=== PATIENT | female | born 1985 | race Caucasian/White ===

== ENCOUNTER 2021-11-21 01:09 | Emergency (ER) | payer BC ==
--- OUTSIDE RECORDS SUMMARY | 2021-11-21 01:12 | XMS REPORT | Continuity of Care Document ---
:1985 Author Organization [facility] t Address [address] [place] [id number] Care Team Providers Name Role Phone Tayler Primary Care Physician TONYA OLIVERA Attending Clinician Unavailable Karl Hayes Attending Clinician Evi Posada DO Attending Clinician DANIEL Attending Clinician Unavailable RAMIREZ Attending Clinician Unavailable MD RIKKI Attending Clinician Unavailable Iglesia Nichols Attending Clinician IGLESIA LAMB Attending Clinician Unavailable ABHILASH PUGH Attending Clinician Unavailable NEYMAR Admitting Clinician Unavailable MD NEYMAR Admitting Clinician Unavailable Payers Payer Name Policy Type Policy Number Effective Date Expiration Date S ource Problems Condition Condition Condition Status Onset Resolution Last Treating Co mments Source Name Details Category Date Date Treatment Clinician Date No known No known Disease Unive rs active active ity of problems problems [facility] Allergies, Adverse Reactions, Alerts Allergy Allergy Status Severity Reaction(s) Onset Inactive Treating Comm ents Source Name Type Date Date Clinician NSAIDS Drug Active Anaphylaxis 2019-11 Unive rs (NON-HAM Class 0-07 ity of ROIDAL 00:00: [place] ANTI-INF 00 Medical LAMMATOR Branch Y DRUG) Nsaids Propensi Active Anaphylaxis 2019-11 Uni vers (Non-Ham ty to 0-07 ity of roidal adverse 00:00: [place] Anti-Inf reaction 00 Medica l lammator s Branch y Drug) NO KNOWN Drug Active Univers ALLERGIE Class ity of [facility] Social History Social Habit Start Date Stop Date Quantity Comments Source Exposure to Not sure [facility] SARS-CoV-2 (event) Medica l [place] Sex Assigned At [birth year] [facility] 00:00:00 00:00:00 [facility] Smoking Status Start Date Stop Date Source Unknown if ever smoked [facility] Medications Ordered Filled Start Stop Current Ordering Indication Dosage Frequency Signature Comments Components Source Medication Medication Date Date Medication? Clinician (SIG) Name Name proMETHazin 2020- No 12.5mg 12.5 mg, Univers e 07-0530 Intramuscu ity of (PHENERGAN) 18:00: 17:00 lar, ONCE, [place] injection 00 :00 1 dose, Medical 12.5 mg [facility] 07/05/21 at 1300, MIGUELANGEL proMETHazin 2020- No 12.5mg 12.5 mg, Univers e 07-0530 Intramuscu ity of (PHENERGAN) 18:00: 17:00 lar, ONCE, [place] injection 00 :00 1 dose, Medical 12.5 mg [facility] 07/05/21 at 1300, MIGUELANGEL proMETHazin Yes [id number] 25mg Insert 1 Univers e 25 mg 8-30 Suppositor [place]y of supp[place] 00:[place] rectum Medical every 4 Branch (four) hours as needed for Nausea and Vomiting (N/V). proMETHazin Yes [id number] 25mg Insert 1 Univers e 25 mg 8-30 Suppositor [place] of supp[place] 00:[place] rectum Medical every 4 Branch (four) hours as needed for Nausea and Vomiting (N/V). acetaminoph 2019-11- No 1000mg 1,000 mg, Univers en 0-08 10-08 Oral, ity of (TYLENOL) 04:00: 02:56 ONCE[place] tablet [place] :00 dose, Wed Medical 1,000 mg 08/12/20 at [facility] h 2300, MIGUELANGEL famotidine 2019-11- No 20mg 20 mg, Univ ers (PEPCID 0-08 10-08 Slow IV ity of (PF)) 04:00: 02:56 Push, [place] injection 00 :00 ONCE, 1 Medical 20 mg dose, [facility] Branch 08/12/20 at 2300, MIGUELANGEL maalox:diph 2019-11 2020- No 15mL 15 mL, Uni vers enhydrAMINE 0-08 10-08 Oral ity of :lidocaine 04:00: 02:56 [place] 2 % viscous 00 :00 Swallow), Med ical 1:1:1 ONCE, 1 Branch (FIRST-MOUT dose, Wed HWASH BLM) 08/12/20 at oral 2300, suspension Routine 15 mL NaCl 0.9% 2019-11- No 1000mL at 999 Uni vers (NS) bolus 0-08 10-08 mL/hr, ity of infusion 02:30: 02:56 1,000 mL, Dustin as 1,000 mL 00 :00 IV Medical Infusion, Branch ONCE, 1 dose, [facility] 08/12/20 at 2130, STAT ondansetron 2019-11- No 4mg 4 mg, Slow Univers (ZOFRAN 0-08 10-08 IV Push, ity of (PF)) 02:30: 01:46 ONCE, 1 [place] injection 4 00 :00 dose, Wed Med ical mg 08/12/20 at Branch 2130, MIGUELANGEL famotidine 2019-11 Yes [id number] 40mg Take 1 U nivers (PEPCID) 40 0-07 tablet by ity of mg tablet 00:00: mouth [place] 00 daily. Medical Branch famotidine 2019-11 Yes [id number] 40mg Take 1 U nivers (PEPCID) 40 0-07 tablet by ity of mg tablet 00:00: mouth [place] 00 daily. Medical Branch proMETHazin 2019-11 Yes [id number] 25mg Take 1 Univers e 25 mg 0-07 tablet by ity of tablet 00:00: mouth [place] 00 every 6 Medical (six) Branch hours as needed for Nausea and Vomiting (N/V). famotidine 2019-11 Yes [id number] 40mg Take 1 U nivers (PEPCID) 40 0-07 tablet by ity of mg tablet 00:00: mouth [place] 00 daily. Medical Branch proMETHazin 2019-11- No [id number] 25mg Take 1 Univers e 25 mg 0-07 08-30 tablet by ity of tablet 00:00: 00:00 mouth [place] 00 :00 every 6 Medical (six) Branch hours as needed for Nausea and Vomiting (N/V). proMETHazin 2019-11- No [id number] 25mg Take 1 Univers e 25 mg 0-07 08-30 tablet by ity of tablet 00:00: 00:00 mouth [place] 00 :00 every 6 Medical (six) Branch hours as needed for Nausea and Vomiting (N/V). Vital Signs Vital Name Observation Time Observation Value Comments Source Systolic blood 2021-07-05 16:53:00 135 mm[Hg] Univer sity of [facility] Diastolic blood 2021-07-05 16:53:00 85 mm[Hg] [facility] Heart rate 2021-07-05 16:53:00 95 /min [facility] Body temperature 2021-07-05 16:53:00 36.17 [facility] Respiratory rate 2021-07-05 16:53:00 20 /min [facility] Oxygen saturation in 2021-07-05 16:53:00 97 /min University of Arterial blood by [facility] Pulse oximetry Branch Systolic blood 2020-08-13 03:00:00 136 mm[Hg] Univer sity [facility] Diastolic blood 2020-08-13 03:00:00 78 mm[facility]Hg] [facility] rate 2020-08-13 03:00:00 73 /min [facility] Respiratory rate 2020-08-13 03:00:00 20 /min [facility] Oxygen saturation in 2020-08-13 03:00:00 98 /min [facility] Arterial blood by [facility] Pulse oximetry Branch Body temperature 2020-08-13 01:13:00 37.17 [facility] Body height 2020-08-13 01:13:00 167.6 cm [facility] Body weight 2020-08-13 01:13:00 102.967 kg [facility] BMI 2020-08-13 01:13:00 36.64 kg/m2 [facility] Procedures Procedure Date / Time Performed Performing Clinician Sourc e POCT TEST 2020-08-13 01:48:00 Yunier Lamb [facility] LIPASE 2020-08-13 01:43:00 Yunier Lamb [facility] [place] [facility] [place] MAGNESIUM 2020-08-13 01:43:[address] [facility] COMP. METABOLIC PANEL 2020-08-13 01:43:00 Yunier Lamb [facility] ([id number]) [facility] CBC WITH DIFF 2020-08-13 01:43:00 Itz [facility] o [facility] [place] URINALYSIS 2020-08-13 01:43:[address] [facility] NOTICE OF PRIVACY 2020-08-13 01:07:20 Doctor Unassigned, No Univ [facility] PRACTICES Name [facility] CONSENT/REFUSAL FOR 2020-08-13 01:07:01 Doctor Unassigned, No Un [facility] DIAGNOSIS AND Name [facility] TREATMENT Encounters Start End Encounter Admission Attending Care Care Encounter Source Date/Time Date/Time Type Type Clinicians Facility Department ID 2021-11-19 Outpatient [facility] ZIGGY [id number] M emoria 11:28:43 [facility]-10[facility]18 2021-10-18 Outpatient [facility] ZIGGY [id number] Memoria 11:00:00 23:59:00 STEPHAN sharma [facility] 2021-07-05 2021-07-05 Emergency Edelmira Gomez [facility] [id number] Univers 11:58:00 13:46:00 Adry Posada [id number] 0 [facility] [id number] [facility] [id number] [place] [id number] Branch 2021-07-05 2021-07-05 Emergency X [facility] ERT [id number] Univers 11:17:00 11:17:00 ity of [facility] 2021-06-02 2021-06-02 [facility] [id number] [place] 00:00:00 00:00:00 HUNTER [address] 2021-05-28 2021-05-28 Outpatient DANIEL [facility] [id number] [place] 00:00:00 00:00:00 HUNTER [address] 2021-05-16 2021-05-18 Outpatient SON GUZMÁN [facility] [id number] [place] 00:00:00 00:00:[address] 2020-08-12 2020-08-12 Emergency Yunier Lamb [facility] [id number] Univers 20:16:00 22:20:00 Iglesia Reicnos 350.1.13.10 i ty [facility] [id number] [facility] [id number] [facility] 084 Branch 2020-08-12 2020-08-12 Emergency X Yunier LAMB [facility] ERT [id number] Univers 20:04:00 20:04:00 ity of [facility] Results Test Description Test Time Test Comments Results Result Comments Source SARS-CoV-2 (COVID-19) RNA [Presence] in Respiratory sp ecimen by 2021-05-17 12:43:32 THUY with probe detection Test Item Value Reference Range Interpretation Comme nts SARS-CoV-2 (COVID-19) RNA [Presence] in Respiratory Not detected No t-Detected specimen by THUY with probe detection (test code = 83985-0) Whether patient is employed in a healthcare setting (test code = 31476-9) Whether the patient has symptoms related to condition of interest (test code = 37724-6) Patient was hospitalized because of this condition (test code = 17437-7) Whether the patient was admitted to intensive care unit (ICU) for condition of interest (test code = 67161-9) Whether patient resides in a congregate care setting (test code = 92608-2) SARS-CoV-2 (COVID-19) RNA [Presence] in Respiratory specimen by THUY with probe [id number] 12:43:32 Test Item Value Reference Range Interpretation Comments SARS-CoV-2 (COVID-19) RNA Not detected Not-Detected [Presence] in Respiratory specimen by THUY with probe detection (test code = 47550-5) Whether patient is employed in a healthcare setting (test code = 59222-6) Whether the patient has symptoms related to condition of interest (test code = 41582-3) Patient was hospitalized because of this condition (test code = 32223-8) Whether the patient was admitted to intensive care unit (ICU) for condition of interest (test code = 55623-4) Whether patient resides in a congregate care setting (test code = 03023-8) [id number] 02:22:00 Test Item Value Reference Range Interpretation Comments MAGNESIUM (test code = 2607666575) 2.1 mg/dL 1.7-2.4 Lab Interpretation (test code = Normal 41376-7) [facility]. METABOLIC PANEL (18124)2020-08-13 02:21:00 Test Item Value Reference Range Interpretation Comments NA (test code = 135 mmol/L 135-145 7155881714) K (test code = 3.6 mmol/L 3.5-5 0372023562) CL (test code = 97 mmol/L 98-108 L 5299037594) CO2 TOTAL (test code = 31 mmol/L 23-31 3855464868) AGAP (test code = 2-16 2616560076) BUN (test code = 6 mg/dL 7-23 L 5011303894) GLUCOSE (test code = 94 mg/dL 70-110 8877221838) CREATININE (test code = 0.57 mg/dL 0.5-1.04 5833856732) TOTAL BILI (test code = 1.4 mg/dL 0.1-1.1 H 5171056906) CALCIUM (test code = 9.7 mg/dL 8.6-10.6 7944784732) T PROTEIN (test code = 7.1 g/dL 6.3-8.2 2896667427) ALBUMIN (test code = 4.1 g/dL 3.5-5 5046661999) ALK PHOS (test code = 112 U/L 34-122 2269788273) ALTv (test code = 257 U/L 5-35 H 1742-6) AST(SGOT) (test code = 62 U/L 13-40 H 5010666102) eGFR Calculation mL/min/1.73m2 (Non-) (test code = 2230989073) eGFR Calculation mL/min/1.73m2 () (test code = 5412991815) ANIKA (test code = ANIKA) Association of Glomerular Filtration Rate (GFR) and Staging of Kidney Disease* + --+ --+ ------+| GFR (mL/min/1.73 m2) ?| With Kidney Damage ?| ?Without Kidney Damage+ --------+ --------+ +| ?>90 ?| ?Stage one ?| ? Normal ?+ ---+ ---+ -------+| ?60-89 ?| ?Stage two ?| ? Decreased GFR ? + --+ --+ ------+| ?30-59 ?| ?Stage three ?| ? Stage three ? + --+ --+ ------+| ?15-29 ?| ?Stage four ? | ? Stage four ?+ ---+ ---+ -------+| ?<15 (or dialysis) ? ?| ?Stage five ? | ? Stage five ?+ ---+ ---+ -------+ *Each stage assumes the associated GFR level has been in effect for at least three months. ?Stages 1 to 5, with or without kidney disease, indicate chronic kidney disease. Notes: Determination of stages one and two (with eGFR >59mL/min/1.73 m2) requires estimation of kidney damage for at least three months as defined by structural or functional abnormalities of the kidney, manifested by either:Pathological abnormalities or Markers of kidney damage (including abnormalities in the composition of the blood or urine or abnormalities in imaging tests). Lab Interpretation Abnormal (test code = 44111-0) [facility] Test Item Value Reference Range Interpretation Comments LIPASE (test code = 0780108744) 53 U/L 0-220 Lab Interpretation (test code = Normal 98475-1) [facility] 02:04:00 Test Item Value Reference Range Interpretation Comments APPEARANCE (test code = Clear Clear 3443919045) COLOR (test code = Straw Yellow A 4287203678) PH (test code = 4.8-8.0 6006841603) SP GRAVITY (test code = 1.003-1.030 L 4082552023) GLU U QUAL (test code = Normal Normal 8375882286) BLOOD (test code = Negative Negative 7394588701) KETONES (test code = Negative Negative 1046783213) PROTEIN (test code = Negative Negative 2887-8) UROBILIN (test code = Normal Normal 6570024855) BILIRUBIN (test code = Negative Negative 2183653398) NITRITE (test code = Negative Negative 4161752318) LEUK EVA (test code = Negative Negative 5071340659) RBC/HPF (test code = <1 See_Comment [Autom ated message] 8157064819) The system [employer] generated this result transmitted ref erence range: 0 - 3 HP F. The reference range was not used to int erpret this result as normal/abnormal . WBC/HPF (test code = See_Comment [Autom ated message] 0065408819) The system [employer] generated this result transmitted ref erence range: 0 - 5 HP F. The reference range was not used to int erpret this result as normal/abnormal . BACTERIA (test code = Few Negative A 7313794841) SQ EPITH (test code = HPF 9483145286) Lab Interpretation (test Abnormal code = 90985-7) [facility] WITH [id number] 01:56:00 Test Item Value Reference Range Interpretation Comments WBC (test code = See_Comment [Automated 1490-2) message] The sy stem which generated this result transmitted reference range : 4.30 - 11.10 10*3/?L. The reference range was not used to interpret this result as normal/abnormal . RBC (test code = See_Comment [Automated 099-8) message] The sy stem which generated this result transmitted reference range : 3.93 - 5.25 10*6/?L. The reference range was not used to interpret this result as normal/abnormal . HGB (test code = 12.7 g/dL 11.6-15 718-7) HCT (test code = 38.2 % 35.7-45.2 4544-3) MCV (test code = 92.5 fL 80.6-95.5 787-2) MCH (test code = 30.8 pg 25.9-32.8 785-6) MCHC (test code = 33.2 g/dL 31.6-35.1 786-4) RDW-SD (test code = 44.0 fL 39-49.9 41298-8) RDW-CV (test code = 13.0 % 12-15.5 788-0) PLT (test code = See_Comment H [Automated 777-3) message] The sy stem which generated this result transmitted reference range : 166 - 358 10*3/ ?L. The reference r aydin was not used to interpret this result as normal/abnormal . MPV (test code = 9.6 fL 9.5-12.9 06515-8) NRBC/100 WBC (test See_Comment [Automat ed code = 5246106873) message] The system which generated this result transmitted reference range : 0.0 - 10.0 /100 WBCs. The refer ence range was not u sed to interpret th is result as normal/abnormal . NRBC x10^3 (test code <0.01 See_Comment [Auto mated = 4640233865) message] The s ystem which generated this result transmitted reference range : 10*3/?L. The reference range was not used to interpret this result as normal/abnormal . GRAN MAT (NEUT) % 78.5 % (test code = 770-8) IMM GRAN % (test code 0.30 % = 8713612373) LYMPH % (test code = 14.3 % 736-9) MONO % (test code = 5.6 % 5905-5) EOS % (test code = 0.6 % 713-8) BASO % (test code = 0.7 % 706-2) GRAN MAT x10^3(ANC) 7.42 10*3/uL 1.88-7.09 H (test code = 2749171723) IMM GRAN x10^3 (test 0.03 10*3/uL 0-0.06 code = 0339888436) LYMPH x10^3 (test code 1.35 10*3/uL 1.32-3.29 = 731-0) MONO x10^3 (test code 0.53 10*3/uL 0.33-0.92 = 742-7) EOS x10^3 (test code = 0.06 10*3/uL 0.03-0.39 711-2) BASO x10^3 (test code 0.07 10*3/uL 0.01-0.07 = 704-7) Lab Interpretation Abnormal (test code = 74932-5) [id number] 01:48:00 Test Item Value Reference Range Interpretation Comments POCT PREG (test code = 1605) negative On board controls acceptable with present C Line (test code = 3574) POCT PREG LOT # (test code = 3575) [id number] POCT PREG TEST DATE (test 07/06/2021 code = 3576) Lab Interpretation (test code = Normal 35310-1) [facility],60 [id number] 12:53:00 Test Item Value Reference Range Interpretation Comments CORTISOL BASELINE NETWORKED 4.3 mcg/dL (BEAKER) (test code = 2307) CORTISOL 30 MINUTE NETWORKED 14.8 mcg/dL (BEAKER) (test code = 2308) CORTISOL, 60 MINUTE (BEAKER) 16.8 ug/dL (test code = 1805) ACTH STIMULATION TEST INTERPRETATION GUIDELINES(Synonyms: Cortrosyn Test, Cosyntropin or Corticotropin Stimulation Test)Adenocorticotropic hormone (ACTH)is a tropic hormone, made in the pituitary gland, which travels trhough the bloodstream and stimulates the cortex of the adrenal glands to release cortisol. Cortisol is a primary hormone, which aids the body's metabolism of fats, carbohydrates, and protein as well as sodium and potassium regulation.ACTH Stimulation Test: Exogenous administrationof biologically active ACTH stimulates the secretion of cortisol from the adrenal gland. This test is used to evaluate adrenal function by measuring cortisol levels at baseline and at 30 and 60 minutesafter the administration of 250 micrograms of cosyntropin (Cortrosyn). Patients who have received exogenous corticosteroids immediately prior to performing the ACTH Stimulation Test will often have elevated baseline cortisol levels, which may lead to erroneous interpretation of test results. The notable exception is with dexamethasone.Normal Response: An increase in cortisol after stimulation by ACTHis normal. Post-stimulation cortisol concentration should be greater than 20 mcg/dL or the rate of rise from baseline cortisol should be greater than or equal to 9 mcg/dL.Patients with sepsis or septicshock: According to a study by Zeny et al (MATILDA 2000,283(8):1038-45), the ACTH Stimulation Test provides important prognostic information. This study defined 3 groups of patients with sepsis or septic shock: 1. Good Survival: Low basal cortisol (<or=34 mcg/dL) and high ACTH response (>9mcg/dL) 2. Intermediate Survival: Low basal cortisol (<34 mcg/dL) and low response to ACTH (&l t;or=9 mcg/dL) OR High basal cortisol (>34 mcg/dL) or high ACTH response (>9 mcg/dL) 3.Poor Survival: High basal cortisol (>34 mcg/dL) and low ACTH response (<or=9 mcg/dL).Treatment of patients with relative adrenal dysfunction may be indicated based on test results and the clinical condition of the patient. Additional information, including treatment recommendations, is available in critically ill patients, approved by the Pharmacy, Nutrition, and Therapeutics Committee on 10/15/2004 and available through the Pharmacy Policy and Procedure Section on The Source.CORTISOL,30 [id number] 12:53:00 Test Item Value Reference Range Interpretation Comments CORTISOL BASELINE NETWORKED 4.3 mcg/dL (BEAKER) (test code = 2307) CORTISOL, 30 MINUTE (BEAKER) (test 14.8 ug/dL code = 1804) ACTH STIMULATION TEST INTERPRETATION GUIDELINES(Synonyms: Cortrosyn Test, Cosyntropin or Corticotropin Stimulation Test)Adenocorticotropic hormone (ACTH)is a tropic hormone, made in the pituitary gland, which travels trhough the bloodstream and stimulates the cortex of the adrenal glands to release cortisol. Cortisol is a primary hormone, which aids the body's metabolism of fats, carbohydrates, and protein as well as sodium and potassium regulation.ACTH Stimulation Test: Exogenous administrationof biologically active ACTH stimulates the secretion of cortisol from the adrenal gland. This test is used to evaluate adrenal function by measuring cortisol levels at baseline and at 30 and 60 minutesafter the administration of 250 micrograms of cosyntropin (Cortrosyn). Patients who have received exogenous corticosteroids immediately prior to performing the ACTH Stimulation Test will often have elevated baseline cortisol levels, which may lead to erroneous interpretation of test results. The notable exception is with dexamethasone.Normal Response: An increase in cortisol after stimulation by ACTHis normal. Post-stimulation cortisol concentration should be greater than 20 mcg/dL or the rate of rise from baseline cortisol should be greater than or equal to 9 mcg/dL.Patients with sepsis or septicshock: According to a study by Zeny et al (MATILDA 2000,283(8):9053-09), the ACTH Stimulation Test provides important prognostic information. This study defined 3 groups of patients with sepsis or septic shock: 1. Good Survival: Low basal cortisol (<or=34 mcg/dL) and high ACTH response (>9mcg/dL) 2. Intermediate Survival: Low basal cortisol (<34 mcg/dL) and low response to ACTH (&l t;or=9 mcg/dL) OR High basal cortisol (>34 mcg/dL) or high ACTH response (>9 mcg/dL) 3.Poor Survival: High basal cortisol (>34 mcg/dL) and low ACTH response (<or=9 mcg/dL).Treatment of patients with relative adrenal dysfunction may be indicated based on test results and the clinical condition of the patient. Additional information, including treatment recommendations, is available in critically ill patients, approved by the Pharmacy, Nutrition, and Therapeutics Committee on 10/15/2004 and available through the Pharmacy Policy and Procedure Section on The Source.CORTISOL,[id number] 12:47:00 Test Item Value Reference Range Interpretation Comments CORTISOL, BASELINE (BEAKER) (test 4.3 ug/dL code = 1803) ACTH STIMULATION TEST INTERPRETATION GUIDELINES(Synonyms: Cortrosyn Test, Cosyntropin or Corticotropin Stimulation Test)Adenocorticotropic hormone (ACTH)is a tropic hormone, made in the pituitary gland, which travels trhough the bloodstream and stimulates the cortex of the adrenal glands to release cortisol. Cortisol is a primary hormone, which aids the body's metabolism of fats, carbohydrates, and protein as well as sodium and potassium regulation.ACTH Stimulation Test: Exogenous administrationof biologically active ACTH stimulates the secretion of cortisol from the adrenal gland. This test is used to evaluate adrenal function by measuring cortisol levels at baseline and at 30 and 60 minutesafter the administration of 250 micrograms of cosyntropin (Cortrosyn). Patients who have received exogenous corticosteroids immediately prior to performing the ACTH Stimulation Test will often have elevated baseline cortisol levels, which may lead to erroneous interpretation of test results. The notable exception is with dexamethasone.Normal Response: An increase in cortisol after stimulation by ACTHis normal. Post-stimulation cortisol concentration should be greater than 20 mcg/dL or the rate of rise from baseline cortisol should be greater than or equal to 9 mcg/dL.Patients with sepsis or septicshock: According to a study by eZny et al (MATILDA 2000,283(8):1038-45), the ACTH Stimulation Test provides important prognostic information. This study defined 3 groups of patients with sepsis or septic shock: 1. Good Survival: Low basal cortisol (<or=34 mcg/dL) and high ACTH response (>9mcg/dL) 2. Intermediate Survival: Low basal cortisol (<34 mcg/dL) and low response to ACTH (&l t;or=9 mcg/dL) OR High basal cortisol (>34 mcg/dL) or high ACTH response (>9 mcg/dL) 3.Poor Survival: High basal cortisol (>34 mcg/dL) and low ACTH response (<or=9 mcg/dL).Treatment of patients with relative adrenal dysfunction may be indicated based on test results and the clinical condition of the patient. Additional information, including treatment recommendations, is available in critically ill patients, approved by the Pharmacy, Nutrition, and Therapeutics Committee on 10/15/2004 and available through the Pharmacy Policy and Procedure Section on [employer].CORTISOL,60 [id number] 15:21:00 Test Item Value Reference Range Interpretation Comments CORTISOL BASELINE NETWORKED 5.1 mcg/dL (BEAKER) (test code = 2307) CORTISOL 30 MINUTE NETWORKED 15.1 mcg/dL (BEAKER) (test code = 2308) CORTISOL, 60 MINUTE (BEAKER) 17.4 ug/dL (test code = 1805) ACTH STIMULATION TEST INTERPRETATION GUIDELINES(Synonyms: Cortrosyn Test, Cosyntropin or Corticotropin Stimulation Test)Adenocorticotropic hormone (ACTH)is a tropic hormone, made in the pituitary gland, which travels trhough the bloodstream and stimulates the cortex of the adrenal glands to release cortisol. Cortisol is a primary hormone, which aids the body's metabolism of fats, carbohydrates, and protein as well as sodium and potassium regulation.ACTH Stimulation Test: Exogenous administrationof biologically active ACTH stimulates the secretion of cortisol from the adrenal gland. This test is used to evaluate adrenal function by measuring cortisol levels at baseline and at 30 and 60 minutesafter the administration of 250 micrograms of cosyntropin (Cortrosyn). Patients who have received exogenous corticosteroids immediately prior to performing the ACTH Stimulation Test will often have elevated baseline cortisol levels, which may lead to erroneous interpretation of test results. The notable exception is with dexamethasone.Normal Response: An increase in cortisol after stimulation by ACTHis normal. Post-stimulation cortisol concentration should be greater than 20 mcg/dL or the rate of rise from baseline cortisol should be greater than or equal to 9 mcg/dL.Patients with sepsis or septicshock: According to a study by Zeny et al (MATILDA 2000,283(8):8129-45), the ACTH Stimulation Test provides important prognostic information. This study defined 3 groups of patients with sepsis or septic shock: 1. Good Survival: Low basal cortisol (<or=34 mcg/dL) and high ACTH response (>9mcg/dL) 2. Intermediate Survival: Low basal cortisol (<34 mcg/dL) and low response to ACTH (&l t;or=9 mcg/dL) OR High basal cortisol (>34 mcg/dL) or high ACTH response (>9 mcg/dL) 3.Poor Survival: High basal cortisol (>34 mcg/dL) and low ACTH response (<or=9 mcg/dL).Treatment of patients with relative adrenal dysfunction may be indicated based on test results and the clinical condition of the patient. Additional information, including treatment recommendations, is available in critically ill patients, approved by the Pharmacy, Nutrition, and Therapeutics Committee on 10/15/2004 and available through the Pharmacy Policy and Procedure Section on [employer].CORTISOL,30 [id number] 15:21:00 Test Item Value Reference Range Interpretation Comments CORTISOL BASELINE NETWORKED 5.1 mcg/dL (BEAKER) (test code = 2307) CORTISOL, 30 MINUTE (BEAKER) (test 15.1 ug/dL code = 1804) ACTH STIMULATION TEST INTERPRETATION GUIDELINES(Synonyms: Cortrosyn Test, Cosyntropin or Corticotropin Stimulation Test)Adenocorticotropic hormone (ACTH)is a tropic hormone, made in the pituitary gland, which travels trhough the bloodstream and stimulates the cortex of the adrenal glands to release cortisol. Cortisol is a primary hormone, which aids the body's metabolism of fats, carbohydrates, and protein as well as sodium and potassium regulation.ACTH Stimulation Test: Exogenous administrationof biologically active ACTH stimulates the secretion of cortisol from the adrenal gland. This test is used to evaluate adrenal function by measuring cortisol levels at baseline and at 30 and 60 minutesafter the administration of 250 micrograms of cosyntropin (Cortrosyn). Patients who have received exogenous corticosteroids immediately prior to performing the ACTH Stimulation Test will often have elevated baseline cortisol levels, which may lead to erroneous interpretation of test results. The notable exception is with dexamethasone.Normal Response: An increase in cortisol after stimulation by ACTHis normal. Post-stimulation cortisol concentration should be greater than 20 mcg/dL or the rate of rise from baseline cortisol should be greater than or equal to 9 mcg/dL.Patients with sepsis or septicshock: According to a study by Zeny et al (MATILDA 2000,283(8):1038-45), the ACTH Stimulation Test provides important prognostic information. This study defined 3 groups of patients with sepsis or septic shock: 1. Good Survival: Low basal cortisol (<or=34 mcg/dL) and high ACTH response (>9mcg/dL) 2. Intermediate Survival: Low basal cortisol (<34 mcg/dL) and low response to ACTH (&l t;or=9 mcg/dL) OR High basal cortisol (>34 mcg/dL) or high ACTH response (>9 mcg/dL) 3.Poor Survival: High basal cortisol (>34 mcg/dL) and low ACTH response (<or=9 mcg/dL).Treatment of patients with relative adrenal dysfunction may be indicated based on test results and the clinical condition of the patient. Additional information, including treatment recommendations, is available in critically ill patients, approved by the Pharmacy, Nutrition, and Therapeutics Committee on 10/15/2004 and available through the Pharmacy Policy and Procedure Section on [employer].CORTISOL,[id number] 15:17:00 Test Item Value Reference Range Interpretation Comments CORTISOL, BASELINE (BEAKER) (test 5.1 ug/dL code = 1803) ACTH STIMULATION TEST INTERPRETATION GUIDELINES(Synonyms: Cortrosyn Test, Cosyntropin or Corticotropin Stimulation Test)Adenocorticotropic hormone (ACTH)is a tropic hormone, made in the pituitary gland, which travels trhough the bloodstream and stimulates the cortex of the adrenal glands to release cortisol. Cortisol is a primary hormone, which aids the body's metabolism of fats, carbohydrates, and protein as well as sodium and potassium regulation.ACTH Stimulation Test: Exogenous administrationof biologically active ACTH stimulates the secretion of cortisol from the adrenal gland. This test is used to evaluate adrenal function by measuring cortisol levels at baseline and at 30 and 60 minutesafter the administration of 250 micrograms of cosyntropin (Cortrosyn). Patients who have received exogenous corticosteroids immediately prior to performing the ACTH Stimulation Test will often have elevated baseline cortisol levels, which may lead to erroneous interpretation of test results. The notable exception is with dexamethasone.Normal Response: An increase in cortisol after stimulation by ACTHis normal. Post-stimulation cortisol concentration should be greater than 20 mcg/dL or the rate of rise from baseline cortisol should be greater than or equal to 9 mcg/dL.Patients with sepsis or septicshock: According to a study by Zeny et al (MATILDA 2000,283(8):1203-45), the ACTH Stimulation Test provides important prognostic information. This study defined 3 groups of patients with sepsis or septic shock: 1. Good Survival: Low basal cortisol (<or=34 mcg/dL) and high ACTH response (>9mcg/dL) 2. Intermediate Survival: Low basal cortisol (<34 mcg/dL) and low response to ACTH (&l t;or=9 mcg/dL) OR High basal cortisol (>34 mcg/dL) or high ACTH response (>9 mcg/dL) 3.Poor Survival: High basal cortisol (>34 mcg/dL) and low ACTH response (<or=9 mcg/dL).Treatment of patients with relative adrenal dysfunction may be indicated based on test results and the clinical condition of the patient. Additional information, including treatment recommendations, is available in critically ill patients, approved by the Pharmacy, Nutrition, and Therapeutics Committee on 10/15/2004 and available through the Pharmacy Policy and Procedure Section on [employer]."
--- NOTE | 2021-11-21 01:59 | ER ---
Nurse's Notes [facility] Name: Shauna Fish Age: 36 yrs Sex: Female : 1985 Arrival Date: 11/21/2021 Time: 01:15 Bed Waiting Private MD: Diagnosis: Presentation: 11/21 01:22 Chief complaint: Patient states: C/o R knee pain, states she's had chronic R knee pain mk that she had been seeing a chiropractor for (who referred her to ortho after an MRI), but on Monday she was walking and it 'just popped', denies trauma. Ambulatory w/ limp in triage. Hx ADHD. Coronavirus screen: Vaccine status:. Ebola Screen: Patient negative for fever greater than or equal to 101.5 degrees Fahrenheit, and additional compatible Ebola Virus Disease symptoms. Initial Sepsis Screen: Does the patient meet any 2 criteria? No. Patient's initial sepsis screen is negative. Does the patient have a suspected source of infection? No. Patient's initial sepsis screen is negative. Risk Assessment: Do you want to hurt yourself or someone else? Patient reports no desire to harm self or others. Onset of symptoms was November 19, 2021. 01: Method Of Arrival: Ambulatory 01: Method Of Arrival: Ambulatory 01: Acuity: RALPH 4 Triage Assessment: 01:20 General: Appears in no apparent distress. Behavior is calm, cooperative. Pain: Complains of pain in R knee Pain radiates to to R toes and up the thigh Pain currently is 7 out of 10 on a pain scale. at worst was 8 out of 10 on a pain scale. Quality of pain is described as sharp, gnawing, Pain began suddenly, 1 day ago. Is continuous. Neuro: Level of Consciousness is awake, alert, obeys commands, Oriented to person, place, time, situation. Musculoskeletal: Capillary refill < 3 seconds, in bilateral fingers. toes. Range of motion: limited in right knee. Injury Description: states "I was just walking and I heard a pop". Historical: - Allergies: : Motrin (Rash, Respiratory distress); mk - Immunization history:: Adult Immunizations up to date. - Social history:: Smoking status: Patient denies any tobacco usage or history of. Screenin:26 Abuse screen: Denies threats or abuse. Abuse screen: Denies injuries from another. Nutritional screening: No deficits noted. Tuberculosis screening: No symptoms or risk factors identified. Fall Risk No fall in past 12 months (0 pts). No secondary diagnosis (0 pts). No IV (0 pts). Ambulatory Aid- None/Bed Rest/Nurse Assist (0 pts). Gait- Normal/Bed Rest/Wheelchair (0 pts) Mental Status- Oriented to own ability (0 pts). Total Gautam Fall Scale indicates No Risk (0-24 pts). Vital Signs: 01:22 BP 142 / 87; Pulse 79; Resp 18; Temp 98.3; Pulse Ox 97% on R/A; Height 5 ft. 7 in. (170.18 cm); 01:31 Weight 126.6 kg; Height 5 ft. 7 in. (170.18 cm); 01:31 Body Mass Index 43.71 (126.60 kg, 170.18 cm) ED Course: 01:15 Patient arrived in ED. 01:26 Triage completed. 01:27 Arm band placed on. Administered Medications: No medications were administered Outcome: 01:59 Patient left the ED. mk 01:59 Eloped from waiting room, before seeing physician 01:59 Condition: stable Signatures: Muna Gloria Madeline, RN RN tomi Corrections: (The following items were deleted from the chart) 01:29 01:22 Chief complaint: Patient states: C/o R knee pain, states she's had chronic R knee mk pain that she had been seeing a chiropractor for (who referred her to ortho after an MRI), but on Monday she was walking and it 'just popped', denies trauma. Ambulatory w/ limp in triage
[2021-11-21 02:04] VITALS: BP 142/87; TEMP 98.3; O2SAT 97
== END 2021-11-21 01:59 | disposition left against medical advice (07) ==
LOC: ER 01:09
DX: M25.561 Pain in right knee (principal); Z53.21 Procedure and treatment not carried out due to patient leaving prior to being seen by health care provider
CPT/HCPCS: 99281